=== PATIENT | male | born 1960 | race Native Hawaiian/Other Pacific Islander ===

== ENCOUNTER 2019-01-15 09:59 | Emergency (ER) | payer BC ==
[~2019-01-15] VITALS: Ht 182.9 cm; Wt 98.9 kg
[~2019-01-15 09:59] MED LIST: CYCL10 PO; Cyclobenzaprine5 MG PO; HYDACE10B PO; HYDACE5 PO; IBUP800 PO; META800 PO; NAPR550 PO; TRAM50 PO
[2019-01-15] MEDS ORDERED: CANDESARTAN-HC1 EAC2 PO (10:05)
[2019-01-15] MEDS ORDERED: AMLO10 PO (10:05)
[2019-01-15] MEDS ORDERED: Naprosyn500 MG PO (10:17)
[2019-01-15] MEDS ORDERED: Percocet 10-321 EACH PO (10:17)
[2019-01-15] MEDS ORDERED: CYCL10 PO (10:17)
== END 2019-01-15 10:41 | disposition home or self-care (01) ==
LOC: ER 09:59
DX: S39.012A Strain of muscle, fascia and tendon of lower back, initial encounter (principal); S29.012A Strain of muscle and tendon of back wall of thorax, initial encounter; I10 Essential (primary) hypertension; F17.200 Nicotine dependence, unspecified, uncomplicated; X58.XXXA Exposure to other specified factors, initial encounter
CPT/HCPCS: 96372; 99283-25; J1170; J1885

== ENCOUNTER 2022-07-12 08:51 | Emergency (ER) | payer BC ==
[~2022-07-12] VITALS: Ht 182.9 cm; Wt 95.7 kg
[~2022-07-12 08:51] MED LIST changes: +AMLO10 PO; +CANDESARTAN-HC1 EAC2 PO; +HYDR1TAB94 PO; +Naprosyn500 MG PO; +PERCOCET 10-321 EAC4 PO; +Percocet 10-321 EACH PO; +Valium5 MG PO
[2022-07-12] MEDS ORDERED: ATOR10 PO (09:41)
[2022-07-12] MEDS ORDERED: HYDROCODONE-AC1 EAC7 PO (09:42)
[2022-07-12 09:58] LABS: Alanine Aminotransfer (ALT/SGP 23 U/L (12-78); Albumin, Blood 4.2 g/dL (3.4-5.0); Albumin/Globulin Ratio 1.1 (0.8-1.8); Alk Phos 57 U/L (50-136); Anion Gap 7 mmol/L (6-16); Aspartate Aminotrans (AST/SGOT 12 U/L (12-37); Bilirubin, Total 0.4 mg/dL (0.1-1.0); Blood Urea Nitrogen 22 mg/dL (8-24); Bun/Creatinine Ratio 20.6 (12.0-20.0); CO2, Blood 29 mmol/L (21-32); Calcium, Blood 9.1 mg/dL (8.5-10.1); Chloride, Blood 99 mmol/L (98-108); Creatinine, Blood 1.07 mg/dL (0.60-1.20); Globulin, Blood 3.8 g/dL (2.2-4.0); Glomerular Filtration Rate 78 (60-); Glucose, Blood 108 mg/dL (70-99); Potassium, Blood 3.9 mmol/L (3.5-5.5); Sodium, Blood 135 mmol/L (136-145)
[2022-07-12 10:11] LABS: Acetaminophen, Random <2.0 ug/mL (10.0-30.0)
== END 2022-07-12 11:33 | disposition home or self-care (01) ==
LOC: ER 08:51
PROVIDERS: Physician Assistant
DX: T39.1X1A Poisoning by 4-Aminophenol derivatives, accidental (unintentional), initial encounter (principal); M54.9 Dorsalgia, unspecified; G89.29 Other chronic pain; F17.210 Nicotine dependence, cigarettes, uncomplicated; Z79.899 Other long term (current) drug therapy; Z88.6 Allergy status to analgesic agent
CPT/HCPCS: 36415; 80053; 99283; G0480

== ENCOUNTER → 2022-11-12 | Outpatient (CLI) | payer BC ==
[~2022-11-12] MED LIST changes: +ATOR10 PO; +HYDROCODONE-AC1 EAC7 PO
== END | disposition home or self-care (01) ==
LOC: LAB 11:30 → LAB SHORT 11:30
DX: R10.9 Unspecified abdominal pain (principal); R19.5 Other fecal abnormalities
CPT/HCPCS: 87338

== ENCOUNTER → 2023-09-07 | Outpatient (CLI) | payer MEDICARE ==
[2023-09-07 18:58] LABS: Adenovirus F 40/41 Not Detected (NOT DETECT); Astrovirus Not Detected (NOT DETECT); Campylobacter Sp Not Detected (NOT DETECT); Cryptosporidium Not Detected (NOT DETECT); Cyclospora Cayetanensis Not Detected (NOT DETECT); E. Coli O157 Not Detected (NOT DETECT); Entamoeba Histolytica Not Detected (NOT DETECT); Enteroaggregative E. coli-EAEC Not Detected (NOT DETECT); Enteropathogenic E. coli-EPEC Not Detected (NOT DETECT); Enterotoxigenic E. coli-ETEC Not Detected (NOT DETECT); Giardia Lamblia Not Detected (NOT DETECT); Plesiomonas Shigelloides Not Detected (NOT DETECT); Salmonella Sp Not Detected (NOT DETECT); Shiga Toxin-prod E. coli-STEC Not Detected (NOT DETECT); Shigella/Enteroin E. coli-EIEC Not Detected (NOT DETECT); Vibrio Cholerae Not Detected (NOT DETECT); Vibrio Sp Not Detected (NOT DETECT); Yersinia Enterocolitica Not Detected (NOT DETECT)
[2023-09-07 18:59] LABS: Norovirus GI/GII Not Detected (NOT DETECT); Rotavirus A Not Detected (NOT DETECT); Sapovirus Not Detected (NOT DETECT)
== END | disposition home or self-care (01) ==
LOC: LAB SHORT 15:10 → LAB 15:10
PROVIDERS: Nurse Practitioner Family
DX: R10.0 Acute abdomen (principal)
CPT/HCPCS: 87338; 87507

== ENCOUNTER 2023-10-22 11:02 | Emergency (ER) | payer OTHER ==
[~2023-10-22] VITALS: Ht 182.9 cm; Wt 90.7 kg
[2023-10-22 11:52] VITALS: BP 185/89
[2023-10-22 13:24] LABS: Albumin/Globulin Ratio 1.1 (0.8-1.8); Bilirubin, Total 0.3 mg/dL (0.1-1.0); Bun/Creatinine Ratio 19.5 (12.0-20.0); Calcium, Blood 9.5 mg/dL (8.5-10.1); Creatinine, Blood 0.87 mg/dL (0.60-1.20); Globulin, Blood 3.6 g/dL (2.2-4.0); Potassium, Blood 4.2 mmol/L (3.5-5.5); Total Protein, Blood 7.6 g/dL (6.4-8.2)
== END 2023-10-22 13:00 | disposition home or self-care (01) ==
LOC: ER 11:02
PROVIDERS: Physician Assistant
DX: F41.9 Anxiety disorder, unspecified (principal); T40.0X5A Adverse effect of opium, initial encounter; M54.50 Low back pain, unspecified; G89.29 Other chronic pain; I10 Essential (primary) hypertension; F17.200 Nicotine dependence, unspecified, uncomplicated; Z79.899 Other long term (current) drug therapy; Z88.8 Allergy status to other drugs, medicaments and biological substances
CPT/HCPCS: 80053; 99283

== ENCOUNTER 2025-04-17 09:11 | Day surgery (SDC) | payer OTHER ==
[~2025-04-17] VITALS: Ht 182.9 cm; Wt 95.2 kg
[~2025-04-17 09:11] MED LIST changes: +CRUTCH2 XX; +DOCU100 PO; +Percocet 5-3251 EACH PO
[2025-04-17] MEDS ORDERED: CeFAZolin Sodium 2,000 MG VIAL ONE (10:53)
[2025-04-17] MEDS ORDERED: HYDROCODONE-AC1 EAC7 (11:05)
[2025-04-17] MEDS ORDERED: Phenylephrine HCl 100 MCG/ML-NS 10MLSYR (1MG/10ML) ONE (11:13)
[2025-04-17] MEDS ORDERED: Midazolam HCl 1MG / ML 2ML Vial ONE (12:00)
[2025-04-17] MEDS ORDERED: FentaNYL Citrate 50 MCG/ML 2 ML Injection ONE ×2 (12:00→13:12)
[2025-04-17] MEDS ORDERED: ePHEDrine Sulfate 50 MG/ML 1ML Injection ONE (12:24)
[2025-04-17] MEDS ORDERED: Ondansetron HCl 2 MG / ML 2ML Vial ONE (12:46)
[2025-04-17] MEDS ORDERED: Dexamethasone Sod Phos 10 MG/ML 1ML VIAL ONE (12:46)
[2025-04-17 13:46] VITALS: BP 145/80
[2025-04-17] MEDS ORDERED: OxyCODONE 5 mg/Acetamin 325 mg TABLET ONE (13:48)
== END 2025-04-17 14:12 | disposition home or self-care (01) ==
LOC: ORSCSDS 09:11
PROVIDERS: Orthopaedic Surgery
PROC: 0JNK0ZZ Release Left Hand Subcutaneous Tissue and Fascia, Open Approach (ICD-10-PCS; principal; 2025-04-17 11:55)
DX: M72.0 Palmar fascial fibromatosis [Dupuytren] (principal); I10 Essential (primary) hypertension; E78.5 Hyperlipidemia, unspecified; J44.9 Chronic obstructive pulmonary disease, unspecified; Z87.891 Personal history of nicotine dependence; F41.9 Anxiety disorder, unspecified; Z79.899 Other long term (current) drug therapy; Z01.812 Encounter for preprocedural laboratory examination
CPT/HCPCS: 36415; 80048; 85025; 88304; A9270; J0165; J0690; J1100; J2250; J2371; J2405; J2704; J3010; J7120